=== PATIENT | male | born 1985 | race Caucasian/White ===

== ENCOUNTER 2018-09-09 08:36 | Emergency (ER) | payer SELFPAY ==
[~2018-09-09] VITALS: Ht 175.3 cm; Wt 70.3 kg
[2018-09-09 08:44] VITALS: BP 123/81
[2018-09-09] MEDS ORDERED: SULF1TAB24 PO (08:49)
[2018-09-09] MEDS ORDERED: MUPI22OI2 TP (08:49)
--- NOTE | 2018-09-09 08:57 | PHYS DOC ---
Past Medical History Past Medical History: No Pertinent History Past Surgical History: Other Additional Past Surgical Histo: L)bicep repair. Alcohol Use: Occasionally Drug Use: Marijuana Adult General Chief Complaint Chief Complaint: SKIN RASH[facility]ABSCESS [facility] Patient is a 33 year old male with history of MRSA who presents with facial involving his anterior chin. Patient first noticed rash yesterday. Patient with tender indurated erythematous patch of cellulitis over anterior lower chin with minimal swelling and no fluctuance. Patient is not diabetic. No fever chills, nausea vomiting or sweats.[] Review of Systems Review of Systems ROS as per HPI All other systems were reviewed and found to be within normal limits, except as documented in this note. Allergies Allergies Allergies Coded Allergies Type Severity Reaction Last Updated Verified No Known Drug Allergies 10/10/13 No Physical Exam Physical Exam Constitutional: Well developed, well nourished, no acute distress, non-toxic appearance. [] HENT: Normocephalic, atraumatic, bilateral external ears normal, face, tender indurated erythematous patch of cellulitis over anterior lower chin with minimal swelling and no fluctuance. [] Eyes: PERRLA, EOMI, conjunctiva normal, no discharge. [] Neck: Normal range of motion, no tenderness, supple, no stridor. [] Neurologic: Alert and oriented X 3, normal motor function, normal sensory function, no focal deficits noted. [] Psychologic: Affect normal, judgement normal, mood normal. [] Current Patient Data Vital Signs Vital Signs Date Time Temp Pulse Resp B/P (MAP) Pulse Ox O2 Delivery O2 Flow Rate FiO2 09/09/18 08:44 97.5 82 18 123/81 (95) 100 Room Air 97.5 EKG EKG [] Radiology/Procedures Radiology/Procedures [] Course & Med Decision Making Course & Med Decision Making Pertinent Labs and Imaging studies reviewed. (See chart for details) Facial cellulitis without abscess. Patient instructed to recheck in the ED in 1- 2 days. Return precautions reviewed. ] Dragon Disclaimer Dragon Disclaimer This electronic medical record was generated, in whole or in part, using a voice recognition dictation system. Departure Departure Impression: Primary Impression: Facial cellulitis Disposition: 01 HOME, SELF-CARE Condition: GOOD Patient Instructions: Cellulitis, [id number] Additional Instructions: Please recheck in the ED in 1-2 days for reevaluation of facial rash.. Scripts Mupirocin (MUPIROCIN OINTMENT) 22 Gm Oint...g. 1 MERE TP TID for WOUND CARE, #1 TUBE Prov: WILNER TEJADA DO 09/09/18 Sulfamethoxazole/Trimethoprim (BACTRIM DS TABLET) 1 Each Tablet 1 TAB PO BID, #20 TAB Prov: WILNER TEJADA DO 09/09/18 WILNER TEJADA DO Sep 09, 2018 08:57
== END 2018-09-09 08:51 | disposition home or self-care (01) ==
LOC: ER 08:36
DX: L03.211 Cellulitis of face (principal)
CPT/HCPCS: 99283